=== PATIENT | female | born 1965 | race Caucasian/White ===

== ENCOUNTER → 2021-01-18 07:14 | Outpatient (CLI) | payer MEDICARE, MEDICAID, SELFPAY ==
[2021-01-18 17:41] LABS: SARS-CoV-2 RNA PCR Negative
== END ==
PROVIDERS: PCP Emergency Medicine; Visit Provider Emergency Medicine
DX: Z11.52 Encounter for screening for COVID-19 (principal); Z20.822 Contact with and (suspected) exposure to COVID-19
CPT/HCPCS: C9803; U0003; U0005

== ENCOUNTER 2022-05-18 13:42 | Emergency (ER) | payer MEDICARE, MEDICAID, SELFPAY ==
--- NOTE | ~2022-05-18 | CT_ITS ---
EXAMINATION: CT BRAIN W/O DATE: 05/18/2022 15:10 INDICATION: Left hand weakness and paralysis. TECHNIQUE: Computed tomography (CT) of the head was performed without intravenous contrast. The dose- length product was 605.33 mGy-cm. Automated exposure control and iterative reconstruction technique w ere employed. COMPARISON: No prior studies for comparison. FINDINGS: Normal brain parenchymal volume for age. Normal montalvo-white differentiation. No acute intrac ranial hemorrhage, infarction, mass or mass effect. No ventriculomegaly or midline shift. Midline sagittal images demonstrate a normal corpus callosum, c raniovertebral junction and sella turcica. Basilar cisterns are patent. Paranasal sinuses and mastoids are pneumatized. No depressed skull fractures. IMPRESSION: 1. No acute intracranial abnormality. Reviewed, dictated and finalized at location A.
--- NOTE | ~2022-05-18 | XR_ITS ---
XR hand LT min 3V 05/18/2022 15:03 INDICATION: Left hand contracture PROCEDURE: 3 views left hand COMPARISON: No prior studies for comparison. FINDINGS: Fracture, dislocation or subluxation is not identified. Osteopenia. The soft tissues appear within normal limits. No foreign bodies are identified. There is mild polyarticular osteoarthritis. IMPRESSION: 1: NO ACUTE BONE OR JOINT ABNORMALITY IDENTIFIED. Reviewed, dictated and finalized at location A.
[2022-05-18 13:44] VITALS: BP 142/98; PULSE 83; RESP 18; TEMP 36.5; O2SAT 100
[2022-05-18 13:54] VITALS: O2SAT 100
[2022-05-18 14:01] VITALS: O2SAT 98
[2022-05-18 14:15] VITALS: O2SAT 94
[2022-05-18 14:45] VITALS: BP 149/104; O2SAT 98
[2022-05-18 15:04] LABS: Basophils Percent Auto 0.2 % (0.2-1.2); Eosinophils Absolute Auto 0.1 K/mm3 (0-0.3); Eosinophils Percent Auto 0.2 % (0-4.4); Hematocrit 42.5 % (37.0-47.0); Hemoglobin 13.3 g/dL (12.0-15.0); Immature Granulocyte Absolute 0.13 K/mm3 (0.00-0.031); Immature Granulocyte Percent A 0.6 % (0-0.5); Lymphocytes Absolute Auto 3.01 K/mm3 (0.9-3.2); Lymphocytes Percent Auto 12.8 % (18.3-44.2); Mean Corpuscular HGB Conc 31.3 g/dl (32-36); Mean Corpuscular Hemoglobin 29.7 pg (26-34); Mean Corpuscular Volume 94.9 fl (80-100); Mean Platelet Volume 10.3 fl (7.4-10.4); Monocytes Percent Auto 8.5 % (2.6-8.5); Neutrophils Absolute Auto 18.3 K/mm3 (1.3-6.7); Neutrophils Percent Auto 77.7 % (45.5-73.1); Platelet Count Result 263 k/mm3 (150-375); Red Blood Count 4.48 M/mm3 (4.2-5.4); Red Cell Distribution Width 16.4 % (11.5-14.5); White Blood Count 23.5 K/mm3 (4.5-10.0)
[2022-05-18 15:22] LABS: Alanine Aminotransferase 37 U/L (6-35); Albumin Level 4.1 g/dL (3.5-5.1); Alkaline Phosphatase 61 U/L (38-126); Anion Gap 6 mmol/L (8-16); Aspartate Amino Transferase 47 U/L (14-36); Bilirubin,Total 0.4 mg/dL (0.2-1.3); Blood Urea Nitrogen 35 mg/dL (7-17); Calcium 9.4 mg/dL (8.4-10.2); Carbon Dioxide 26 mmol/L (22-30); Chloride 108 mmol/L (98-107); Estimated CRCL calculation 58 ml/min; Estimated Glomerular Filt Rate 52; Glucose 86 mg/dL (65-110); Potassium 3.8 mmol/L (3.4-5.0); Sodium 140 mmol/L (137-145)
--- NOTE | 2022-05-18 16:04 | ED.EXTPRO ---
HPI - Extremity Problem General Chief complaint: Extremity Problem,Nontraumatic <SYD Ruvalcaba Last Filed: 05/18/22 18:48> Stated complaint: left arm feels funny, left hand contracted <SYD Ruvalcaba Last Filed: 05/18/22 18:48> Time Seen by Provider: 05/18/22 14:40 <Reanna Osman PA-C - Last Filed: 05/18/22 18:48> History of Present Illness HPI Narrative: Patient is a 56-year-old female with a history of rheumatoid arthritis, here for evaluation of inability to move her left fingers this morning. Patient states that she woke up with an sensation, noted that it felt somewhat numb and tingly when she woke up, states that she is unable to fully extend the fingers on the left hand. She also notes some weakness in her left wrist. Denies history of previous similar sensation. Denies any weakness in her legs, confusion, slurred speech. Notes that she has chronic elevation in her white blood cell count due to chronic prednisone use. Denies take baths, generalized weakness, fevers, chills, joint pain, nausea, vomiting, chest pain. <SYD Ruvalcaba Last Filed: 05/18/22 18:48> Related Data Allergies/Adverse reactions: Allergies Allergy/AdvReac Type Severity Reaction Status Date / Time No Known Allergies Allergy Verified 05/18/22 14:00 <SYD Ruvalcaba Last Filed: 05/18/22 18:48> Review of Systems Review of Systems: Gen: Denies fevers or chills Eyes: Denies eye pain or visual change ENT: Denies congestion Respiratory: Denies shortness of breath or cough CV: Denies chest pain or palpitations GI: Denies abdominal pain nausea, emesis or diarrhea : denies burning, urgency, frequency or hematuria Musculoskeletal: Reports weakness in left hand. Neuro: Denies numbness, tingling, weakness or focal weakness Skin: Denies rash Except as documented, all other systems reviewed and negative <SYD Ruvalcaba Last Filed: 05/18/22 18:48> Exam Narrative: APPEARANCE: Well appearing, no pain in distress, well-nourished. Head: Normocephalic and atraumatic. EYES: PERRLA/EOMI, conjunctivae clear NOSE: No nasal drainage EARS: External ear normal in appearance THROAT: Oropharynx is clear. Mucous membranes are moist. NECK: Supple. No adenopathy, no masses. RESPIRATORY: Airway patent, respirations nonlabored. Clear to auscultation bilaterally, no rales, rhonchi, wheezing. CARDIOVASCULAR: Regular rate and rhythm without murmurs, rubs, or gallops. ABDOMINAL: Normoactive bowel sounds. Soft, nontender, nondistended. No rebound tenderness or guarding. MUSCULOSKELETAL: Left fingers 2-5 are held passively in flexion. No pain with range of motion in digits. Able to move wrist. Able to flex fingers. No bony tenderness to palpation of bones. mild wrist drop noted on left. no noticeable swelling. NEURO: CN II-XII intact. Finger to nose normal. Normal speech. good strength in bilateral lower extremities. SKIN: Skin is warm and dry. No rashes. PSYCHIATRIC: Normal affect/mood. <Reanna Osman PA-C - Last Filed: 05/18/22 18:48> Course MAID SUPERVISOR/PA Physician Supervision I examined and discussed this patient with LAURIE Osman, I agree with the exam, assessment and plan as documented. <Brett Spencer MD - Last Filed: 05/18/22 20:24> Vital Signs Vital signs: Vital Signs Temperature 97.7 F 05/18/22 13:44 Pulse Rate 83 05/18/22 13:44 Respiratory Rate 18 05/18/22 13:44 Blood Pressure 142/98 H 05/18/22 13:44 Pulse Oximetry 100 05/18/22 13:44 Oxygen Delivery Room Air 05/18/22 13:44 Temperature 97.7 F 05/18/22 13:44 Pulse Rate 74 05/18/22 17:33 Respiratory Rate 18 05/18/22 17:33 Blood Pressure 130/76 05/18/22 17:33 Pulse Oximetry 74 L 05/18/22 17:33 Oxygen Delivery Room Air 05/18/22 13:44 <Reanna Osman PA-C - Last Filed: 05/18/22 18:48> Vital Signs Temperature 97.7 F 05/18/22
[2022-05-18 17:33] VITALS: BP 130/76; PULSE 74; RESP 18; O2SAT 74
== END 2022-05-18 17:35 | disposition home or self-care (01) ==
PROVIDERS: Physician Assistant; Emergency Provider Preventive Medicine Aerospace Medicine; PCP Student in an Organized Health Care Education/Training Program
DX: M21.332 Wrist drop, left wrist (principal); M06.9 Rheumatoid arthritis, unspecified
CPT/HCPCS: 36415; 70450; 73130; 80053; 85025; 99284